=== PATIENT | male | born 2000 | race Caucasian/White ===

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

== ENCOUNTER 2019-08-02 | Emergency (ER) | payer SELFPAY | END 2019-08-02 12:35 | disposition home or self-care (01) | DRG 558 | DX: M71.22 Synovial cyst of popliteal space [Baker], left knee (principal) ==

== ENCOUNTER 2019-09-27 19:43 | Observation (INO) | payer SELFPAY ==
[~2019-09-27] VITALS: Ht 177.8 cm; Wt 97.2 kg
[2019-09-27 20:32] LABS: HEMATOCRIT 46.9 % (39.0-50.0); HEMOGLOBIN 15.7 g/dl (14.0-18.0); IMMATURE GRANULOCYTES 0.4 % (0.0-5.0); MEAN CELL VOLUME 83.9 fL CALC (80.0-100.0); MEAN CORPUSCULAR HGB 28.1 pG CALC (26.0-32.0); MEAN CORPUSCULAR HGB CONC 33.5 g/L CALC (32.0-36.0); NEUT# 10.67 thou/uL (1.82-7.42); RED BLOOD COUNT 5.59 mill/uL (4.70-6.10); RED CELL DISTRI WIDTH 12.7 % (11.5-15.5)
--- NOTE | 2019-09-27 20:43 | NUR ---
PT STATES CHEST PAIN IS 10/10 ON NUMERIC PAIN SCALE. PT RECEIVES PAIN MEDS, ASPIRIN AND ZOFRAN IV IN 20G IV TO RIGHT AC.
[2019-09-27 20:49] LABS: ALBUMIN 4.7 g/dL (3.2-5.0); ALKALINE PHOSPHATASE 162 u/l (38-126); ANION GAP 12 (6-22 (CALC)); BILIRUBIN, TOTAL 1.1 mg/dL (0.0-1.4); BUN 9 mg/dL (9-20); BUN/CREATININE RATIO 11 (12-20 (CALC)); CARBON DIOXIDE 30 mmol/l (22-30); CHLORIDE 101 mmol/l (95-108); CREATININE 0.9 mg/dL (0.7-1.3); GFR > 60 ML/MIN (>=60 (CALC)); GFR FOR AFR.AMER. > 60 ML/MIN (>=60 (CALC)); POTASSIUM 3.6 mmol/l (3.5-5.1); SGOT/AST 27 u/l (17-59); SODIUM 140 mmol/l (137-146); TOTAL PROTEIN 8.4 g/dL (6.3-8.2)
[2019-09-27 21:01] LABS: MYOGLOBIN 37 ng/mL (0 - 121)
[2019-09-27 21:54] LABS: BARBITURATES NEGATIVE (NEGATIVE); COCAINE NEGATIVE (NEGATIVE); METHADONE NEGATIVE (NEGATIVE); OXCYCODONE NEGATIVE (NEGATIVE); TETRAHYDROCANNABIONOL POSITIVE (NEGATIVE); TRICYLIC ANTIDEPRESSANTS NEGATIVE (NEGATIVE)
--- NOTE | 2019-09-28 00:05 | NUR ---
PT TO BE TRANSPORTED TO ROOM 289. DAVID RECEIVES REPORT PRIOR TO PT TRANSPORT.
--- NOTE | 2019-09-28 00:20 | NUR ---
PT ADMITTED AND IN ROOM 289 REPORT GIVEN TO DAVID MOLINA. PT REMAINS STABLE WITH IMPROVED PAIN. BREATHING EASY AND UNLABORED. VS WNL, HR 88 TELE SINUS. A+OX3 NO S/S OF ANY ACUTE DISTRESS NOTED AT THIS TIME.
--- NOTE | 2019-09-28 00:25 | NUR ---
PT ARRIVED TO THE MED SURG UNIT VIA STRETCHER ACCOMPANIED BY ED NURSE. PT APPEARS IN STABLE CONDITION, SELF AMBULATED TO BED. PT ORIENTED TO ROOM. V/S OBTAINED. PT C/O MILD PAIN IN CHEST ONLY WHEN MOVING. ASKED FOR BEDDING FOR "MY GIRLFRIEND WILL BE COMING UP TO STAY THE NIGHT." NO VISITOR AT BEDSIDE AT THIS TIME.
--- NOTE | 2019-09-28 03:15 | NUR ---
PT ASLEEP IN BED, GIRLFRIEND IS IN THE BED W/PT. NO S/O DISTRESS NOTED.
--- NOTE | 2019-09-28 03:33 | NUR ---
LAB AT BEDSIDE AT THIS TIME.
[2019-09-28 05:00] LABS: HEMATOCRIT 45.3 % (39.0-50.0); HEMOGLOBIN 15.5 g/dl (14.0-18.0); IMMATURE GRANULOCYTES 0.3 % (0.0-5.0); MEAN CELL VOLUME 84.2 fL CALC (80.0-100.0); MEAN CORPUSCULAR HGB 28.8 pG CALC (26.0-32.0); MEAN CORPUSCULAR HGB CONC 34.2 g/L CALC (32.0-36.0); NEUT# 10.21 thou/uL (1.82-7.42); RED BLOOD COUNT 5.38 mill/uL (4.70-6.10); RED CELL DISTRI WIDTH 12.8 % (11.5-15.5)
[2019-09-28 05:15] VITALS: BP 142/72
[2019-09-28 05:16] LABS: ALBUMIN 4.1 g/dL (3.2-5.0); ALKALINE PHOSPHATASE 140 u/l (38-126); ANION GAP 14 (6-22 (CALC)); BILIRUBIN, TOTAL 1.3 mg/dL (0.0-1.4); BUN 8 mg/dL (9-20); BUN/CREATININE RATIO 12 (12-20 (CALC)); CARBON DIOXIDE 28 mmol/l (22-30); CHLORIDE 100 mmol/l (95-108); CREATININE 0.7 mg/dL (0.7-1.3); GFR > 60 ML/MIN (>=60 (CALC)); GFR FOR AFR.AMER. > 60 ML/MIN (>=60 (CALC)); POTASSIUM 3.3 mmol/l (3.5-5.1); SGOT/AST 21 u/l (17-59); SODIUM 138 mmol/l (137-146); TOTAL PROTEIN 7.3 g/dL (6.3-8.2)
--- NOTE | 2019-09-28 05:21 | NUR ---
PT C/O CHEST PAIN, PT WAS GRUNTING AND MOANING, HOLDING HIS L.CHEST. GIRLFRIEND WAS UP NEXT TO PT STANDING ASKING ME TO HELP HIM. RESP IS ON THE FLOOR AND WAS ASKED TO OBTAIN EKG. HARVEST MANAGER IN W/PT AT THIS TIME. PT WILL BE MEDICATED FOR PAIN AT THIS TIME.
[2019-09-28 05:35] VITALS: BP 124/52
--- NOTE | 2019-09-28 05:49 | NUR ---
PT IS SLEEPING AT THIS TIME. DID NOT AWAKE TO MY ENTERING ROOM, NO S/O DISTRESS NOTED. GIRLFRIEND IS IN BED W/PT ASLEEP.
--- NOTE | 2019-09-28 07:35 | NUR ---
REPORT RECEIVED FROM TRACY HERNANDEZ. PT RESTING IN BED SUPINE WITH EYES CLOSED AND GIRLFRIEND LAYING IN BED WITH PT. AWAKENS SPONTANEOUSLY. C/O MILD LEFT UPPER BACK PAIN. RESPIRATIONS EVEN AND UNLABORED ON ROOM AIR. TEMP 99.3; HR 113. ASSESSMENT IS WNL. PLAN OF CARE REVIEWED. PT ENCOURAGED TO VERBALIZE CONCERNS. STATES UNDERSTANDING. SAFETY MEASURES IN PLACE. CALL LIGHT WITHIN REACH.
[2019-09-28 08:00] VITALS: BP 117/62
[2019-09-28 08:31] LABS: CHOLESTEROL HDL RATIO 3.9 (<4.4 (CALC))
--- NOTE | 2019-09-28 11:29 | NUR ---
TORADOL GIVEN FOR 10/10 LEFT CHEST PAIN RADIATING TO LEFT UPPER BACK. INSENTIVE SPIROMETER GIVEN AND EDUCATED ON; ABLE TO BREATH UP TO 1500; HAS CHEST DISCOMFORT WITH DEEP BREATHS. UP TO CHAIR FOR LUNCH.
[2019-09-28 11:39] VITALS: BP 126/69
[2019-09-28] MEDS ORDERED: AMOX/K CLAV875 M1 PO (13:06)
[2019-09-28] MEDS ORDERED: FLEXERIL5 MG PO (13:07)
[2019-09-28] MEDS ORDERED: MEDDOSEPAK PO (13:07)
--- NOTE | 2019-09-28 13:35 | NUR ---
PT IMPATIENT TO LEAVE HOSPITAL. STREP AND FLU SWAB SENT TO LAB; POSITIVE FOR STREP; PT EDUCATED. ROCEPHIN NOW INFUSING AND PO MEDS GIVEN. GRANDMOTHER AT BEDSIDE. DISCHARGE INSTRUCTIONS GIVEN.
--- NOTE | 2019-09-28 14:11 | NUR ---
IV site discontinued, cath intact. No edema , no redness, voices no discomfort.
== END 2019-09-28 14:10 | disposition home or self-care (01) | DRG 204 ==
LOC: ED 19:43 → ED-I 22:52 → ED 23:15 → MS2 23:16 → ED-I 23:16 → MS2 09-28 00:15 → UNDODEPER 09-28 00:20 → MS2 09-28 14:10
PROVIDERS: Emergency Medicine; Nurse Practitioner Family; ADMIT Internal Medicine; ATTEND Internal Medicine
DX: R07.81 Pleurodynia (principal); J02.0 Streptococcal pharyngitis; J45.909 Unspecified asthma, uncomplicated
CPT/HCPCS: G0378; Q9967